=== PATIENT | female | born 1990 ===

== ENCOUNTER 2016-12-31 12:01 | Emergency (ER) | payer MEDICAID ==
[2016-12-31 12:53] VITALS: O2SAT 99; BMI 32.3
[2016-12-31] MEDS ORDERED: Sodium Chloride 0.9% 1,000 ML IV STA (13:08)
--- NOTE | 2016-12-31 13:15 | ED PDOC ---
Arrival/HPI - General Chief Complaint: Female Genitourinary Time Seen by Provider: 12/31/16 12:55 Historian: Patient - History of Present Illness Narrative History of Present Illness (Text): 12/31/16 13:12 26yo female present with complaint of left sided pelvic abdominal pain and vaginal bleeding. she reports that her LMP was Oct 24 2016. States she took a positive home test, but have not seen her OB yet. Reports that she gave 7months ago. States she passed large blood clot and believes it was the tissue. She denies any current vaginal bleeding. States only having pelvic pain. Denies nausea, vomiting, diarrhea, fever, chills, any other complaint. Past Medical History - Provider Review Nursing Documentation Reviewed: Yes - Infectious Disease Hx of Infectious Diseases: None - Reproductive Menopause: No - Pulmonary Hx Asthma: Yes - Psychiatric Hx Depression: No Hx Emotional Abuse: No Hx Physical Abuse: No Hx Substance Use: No - Anesthesia Hx Anesthesia: No Hx Anesthesia Reactions: No Hx Malignant Hyperthermia: No - Suicidal Assessment Feels Threatened In Home Enviroment: No Family/Social History - Physician Review Nursing Documentation Reviewed: Yes Family/Social History: Unknown Family HX Smoking Status: Never Smoked Hx Alcohol Use: No Hx Substance Use: No Allergies/Home Meds Allergies/Adverse Reactions: Allergies No Known Allergies Allergy (Verified 02/04/16 16:25) Home Medications: Home Meds Medication Instructions Recorded Confirmed No Known Home Med 02/04/16 12/31/16 Review of Systems - Physician Review All systems were reviewed & negative as marked: Yes - Review of Systems Constitutional: Normal Eyes: Normal ENT: Normal Respiratory: Normal Cardiovascular: Normal Gastrointestinal: Abdominal Pain. absent: Constipation, Diarrhea, Nausea, Vomiting, Hematochezia, Hematemesis Genitourinary Female: Vaginal Bleeding. absent: Dysuria, Frequency, Hematuria Musculoskeletal: Normal Skin: Normal Neurological: Normal Endocrine: Normal Hemo/Lymphatic: Normal Psychiatric: Normal Physical Exam Vital Signs Reviewed: Yes Vital Signs Temp Pulse Resp BP Pulse Ox 12/31/16 15:12 83 16 99 12/31/16 14:13 99.1 F 78 16 139/50 L 99 12/31/16 12:48 99.3 F 96 H 20 122/80 99 Temperature: Afebrile Blood Pressure: Normal Pulse: Regular Respiratory Rate: Normal Appearance: Positive for: Well-Appearing, Non-Toxic, Comfortable Pain Distress: None Mental Status: Positive for: Alert and Oriented X 3 - Systems Exam Head: Present: Atraumatic, Normocephalic Pupils: Present: PERRL Extroacular Muscles: Present: EOMI Conjunctiva: Present: Normal Mouth: Present: Moist Mucous Membranes Neck: Present: Normal Range of Motion Respiratory/Chest: Present: Clear to Auscultation, Good Air Exchange. No: Respiratory Distress, Accessory Muscle Use Cardiovascular: Present: Regular Rate and Rhythm, Normal S1, S2. No: Murmurs Abdomen: Present: Tenderness (LEft pelvic tenderness), Normal Bowel Sounds, Other (Soft). No: Distention, Peritoneal Signs, Rebound, Guarding, McBurney's Point Tender, Rovsing's Sign Present Back: Present: Normal Inspection Upper Extremity: Present: Normal Inspection. No: Cyanosis, Edema Lower Extremity: Present: Normal Inspection. No: Edema Neurological: Present: GCS=15, CN II-XII Intact, Speech Normal Skin: Present: Warm, Dry, Normal Color. No: Rashes Psychiatric: Present: Alert, Oriented x 3, Normal Insight, Normal Concentration Medical Decision Making ED Course and Treatment: 12/31/16 20:34 PT presented for stated history. she was hemodynamcially stable and comfortable in ED. Lab was unremarkable. Beta was 143,700.00 Transvaginal US - IUP at 10wks 5days with 168bpm. Result was DW the pt. She have OB and was strongly advised to f/u with the OB . Advised TRT ED for any new or worsening symptoms. - Lab Interpretations Lab Results: 12/31/16 13:13 12/31/16 13:13 Lab Results 12/31/16 14:04: Blood Type O POSITIVE, Antibody Screen Negative, BBK History Checked Patient has bt 12/31/16 13:15: Urine Color Yellow, Urine Appearance Sl cloudy, Urine pH 6.0, Ur Specific [place] >= 1.030, Urine Protein Trace H, Urine Glucose (UA) Negative , Urine Ketones Negative, Urine Blood Moderate H, Urine Nitrate Negative, Urine Bilirubin Negative, Urine Urobilinogen 0.2, Ur Leukocyte Esterase Negative, Urine RBC 0 - 2, Urine WBC Negative, Ur Epithelial Cells Many, Urine Bacteria Trace, Urine Other Mucus, Urine HCG, Qual Positive 12/31/16 13:13: Beta HCG, Quant [id number] H 12/31/16 13:13: Sodium 134, Potassium 3.8, Chloride 103, Carbon Dioxide 21, Anion Gap 14, BUN 6 L, Creatinine 0.5, Est GFR ( Amer) > 60, Est GFR (Non -Af Amer) > 60, Random Glucose 105, Calcium 8.9, Total Bilirubin 0.4, AST 23, ALT 29, Alkaline Phosphatase 45, Total Protein 7.3, Albumin 3.8, Globulin 3.5, Albumin/Globulin Ratio 1.1 12/31/16 13:13: PT 11.1, INR 1.03, APTT 24.9 12/31/16 13:13: WBC 9.8, RBC 4.45, Hgb 9.8 L, Hct 31.3 L, MCV 70.3 L, MCH 22.0 L , MCHC 31.3, RDW 16.4 H, Plt Count 288, MPV 10.5, Gran % 72.9 H, Lymph % (Auto) 17.3 L, [place] % (Auto) 8.2 H, Eos % (Auto) 1.3 L, Baso % (Auto) 0.3, Gran # 7.15 H, Lymph # 1.7, [place] # 0.8 H, Eos # 0.1, Baso # 0.03 - RAD Interpretation Radiology Orders: 12/31/16 13:05 OB TRANSVAGINAL [US] Stat - Medication Orders Current Medication Orders: Discontinued Medications Sodium Chloride (Sodium Chloride 0.9%) 1,000 mls @ 999 mls/hr IV .Q1H1M STA Stop: 12/31/16 14:08 Last Admin: 12/31/16 13:24 Dose: 999 mls/hr Disposition/Present on Arrival - Present on Arrival Any Indicators Present on Arrival: No History of DVT/PE: No History of Uncontrolled Diabetes: No Urinary Catheter: No History of Decub. Ulcer: No History Surgical Site Infection Following: None - Disposition Have Diagnosis and Disposition been Completed?: Yes Diagnosis: , Threatened , Abdominal pain, Anemia Disposition: HOME/ ROUTINE Disposition Time: 14:55 Patient Plan: Discharge Condition: STABLE Discharge Instructions (ExitCare): Threatened Miscarriage (ED) Additional Instructions: Follow up with your OB Return to ED for any new or worsening symptoms Referrals: Tita Gomes DO [Primary Care Provider] - Follow up with primary Pascual Quach MD [Staff Provider] - Follow up with primary
[2016-12-31 13:37] LABS: BASO # 0.03 K/mm3 (0.0-2.0); BASO % 0.3 % (0.0-3.0); EOS # 0.1 (0.0-0.7); EOS % 1.3 % (1.5-5.0); GRAN # 7.15 (1.4-6.5); GRAN % 72.9 % (50.0-68.0); HEMOGLOBIN 9.8 gm/dL (12.0-16.0); LYMPH # 1.7 (1.2-3.4); LYMPH % 17.3 % (22.0-35.0); MEAN CELL VOLUME 70.3 fL (80.0-105.0); MEAN CORPUSCULAR HGB CONC 31.3 g/dl (31.0-37.0); MEAN PLATELET VOLUME 10.5 fl (7.0-11.0); MONO # 0.8 (0.1-0.6); MONO % 8.2 % (1.0-6.0); PLATELET COUNT 288 10^3/uL (120.0-450.0); RBC 4.45 10^6/uL (3.5-6.1); RED CELL DISTRIBUTION WIDTH 16.4 % (11.5-14.5); WHITE BLOOD COUNT 9.8 10^3/ul (4.5-11.0)
[2016-12-31 13:37] LABS: URINE BILIRUBIN NEGATIVE (NEGATIVE); URINE BLOOD MODERATE (NEGATIVE); URINE GLUCOSE (UA) NEGATIVE (NEGATIVE); URINE LEUKOCYTE ESTERASE NEGATIVE Leu/uL (NEGATIVE); URINE NITRATE NEGATIVE (NEGATIVE); URINE PROTEIN TRACE mg/dL (<30 mg/dL); URINE UROBILINOGEN 0.2 E.U./dL (<1 E.U./dL)
[2016-12-31 13:38] LABS: URINE APPEARANCE SL CLOUDY (CLEAR); URINE COLOR YELLOW (YELLOW)
[2016-12-31 13:39] LABS: HCG,QUALITATIVE URINE POSITIVE (NEGATIVE)
[2016-12-31 13:46] LABS: ALB/GLOB RATIO 1.1 (1.1-1.8); ALBUMIN 3.8 g/dL (3.0-4.8); ALT/SGPT 29 U/L (7-56); AST/SGOT 23 U/L (15-39); BLOOD UREA NITROGEN 6 mg/dL (7-21); CALCIUM 8.9 mg/dL (8.4-10.5); GFR AFRICAN-AMERICAN > 60; GFR NON-AFRICAN AMERICAN > 60; INR 1.03 (0.93-1.08); PARTIAL THROMBOPLASTIN TIME 24.9 Seconds (23.7-30.8); PROTHROMBIN TIME 11.1 Seconds (9.9-11.8)
[2016-12-31 13:52] LABS: URINE BACTERIA TRACE (NEG); URINE EPITHELIAL CELLS MANY /hpf (0-5); URINE RBC 0 - 2 /hpf (0-2); URINE WBC NEGATIVE /hpf (0-6)
[2016-12-31 14:13] VITALS: BP 139/50; RESP 16; TEMP 99.1
--- NOTE | 2016-12-31 14:17 | US ---
LMP: 10/24/2016 Prior examinations from the current :None TECHNIQUE: Real-time 2D imaging, duplex and color Doppler. FINDINGS: Cardiac activity: Present Rate: 168BPM Measurements: [place] rump length: 3.86cm Gestational age based on CRL 10 weeks 5 days Gestational age based on gestational sac measurement 10 weeks 6 days Gestational age derived from LMP: 9 weeks 5 days TREVER based on LMP:07/31/2017 TREVER based on biometry: 07/23/2017 Gestational concordance documentedyes Yolk sac yesUterus: Unremarkable. No Cervical abnormalities: Negative examination for cervical dilatation or effacement. Subchorionic hemorrhage: None the uterus measures 10.7 x 7.5 x 9.3 cm and is anteverted. Cervical length is 3.4 cm ADNEXA: Right: Ovary 3.4 x 3.4 x 2.0 cm. Normal Doppler arterial waveform documented. Left: Ovary 2.9 x 3.1 x 1.8 cm. Normal Doppler arterial waveform documented Fluid in the cul-de-sac: No IMPRESSION: Single intrauterine gestation with cardiac activity. Estimated gestational age by ultrasound in weeks 6 days +/-0 weeks 5 days
[2016-12-31 15:13] VITALS: PULSE 83
== END 2016-12-31 15:12 | disposition home or self-care (01) ==
LOC: ED 12:01
DX: O20.0 Threatened abortion (principal); O99.011 Anemia complicating pregnancy, first trimester; Z3A.01 Less than 8 weeks gestation of pregnancy; O26.891 Other specified pregnancy related conditions, first trimester; R10.2 Pelvic and perineal pain
CPT/HCPCS: 76817; 80053; 81001; 84702; 84703; 85025; 85610; 85730; 86850; 86900; 99284; J7040

== ENCOUNTER 2018-02-02 13:32 | Emergency (ER) | payer MEDICAID ==
[2018-02-02 13:34] VITALS: BMI 32.3
[2018-02-02 13:50] VITALS: TEMP 99.5; O2SAT 99
[2018-02-02] MEDS ORDERED: TDAP Vaccine 0.5 mL Syr IM ONE (14:00)
--- NOTE | 2018-02-02 14:00 | ED PDOC ---
Arrival/HPI - General Chief Complaint: Abnormal Skin Integrity Time Seen by Provider: 02/02/18 14:00 Historian: Patient - History of Present Illness Narrative History of Present Illness (Text): 02/02/18 14:00 This 27 yo female who denies pmh presents to this ED c/o left forehead laceration x [employer]. Patient stated she accidentally hit her forehead against the corner of bathroom cabinet. Patient denies loc, diplopia, dizziness, weakness, cms, n/v, or abnormal gait. Last tetanus is ukn. Time/Duration: Other (see hpi) Context: Home Past Medical History - Provider Review Nursing Documentation Reviewed: Yes - Infectious Disease Hx of Infectious Diseases: None - Reproductive Menopause: No - Pulmonary Hx Asthma: Yes - Psychiatric Hx Depression: No Hx Emotional Abuse: No Hx Physical Abuse: No Hx Substance Use: No - Anesthesia Hx Anesthesia: No Hx Anesthesia Reactions: No Hx Malignant Hyperthermia: No - Suicidal Assessment Feels Threatened In Home Enviroment: No Family/Social History - Physician Review Nursing Documentation Reviewed: Yes Family/Social History: Other (noncontributory) Smoking Status: Never Smoked Hx Alcohol Use: No Hx Substance Use: No Allergies/Home Meds Allergies/Adverse Reactions: Allergies No Known Allergies Allergy (Verified 02/04/16 16:25) Review of Systems - Review of Systems Constitutional: Normal. absent: Fatigue, Weight Change, Fevers, Night Sweats Eyes: Normal ENT: Normal Respiratory: Normal Cardiovascular: Normal Gastrointestinal: Normal Genitourinary Female: Normal Musculoskeletal: Normal Skin: Laceration (forehead) Neurological: Normal Endocrine: Normal Hemo/Lymphatic: Normal Psychiatric: Normal Physical Exam Vital Signs Temp Pulse Resp BP Pulse Ox 02/02/18 13:46 99.5 F 86 16 130/88 99 Temperature: Afebrile Blood Pressure: Normal Pulse: Regular Respiratory Rate: Normal Appearance: Positive for: Well-Appearing, Non-Toxic, Comfortable Pain Distress: None Mental Status: Positive for: Alert and Oriented X 3 - Systems Exam Head: Present: Normocephalic, Laceration (2.7 cm left forehead laceration), Other (no racoon sign. no cortes sign) Pupils: Present: PERRL Extroacular Muscles: Present: EOMI. No: Entrapment Conjunctiva: Present: Normal Ears: Present: Normal, NORMAL TM, Normal Canal, Other (no hemotymapnum). No: Erythema, TM Bulging, Fluid, TM Perf Mouth: Present: Moist Mucous Membranes, Normal Lips, Normal Tounge. No: Drooling Pharnyx: Present: Normal. No: ERYTHEMA, EXUDATE, TONSILS ENLARGED Neck: Present: Normal Range of Motion. No: Meningeal Signs, MIDLINE TENDERNESS , Paraspinal Tenderness Upper Extremity: Present: Normal Inspection, Normal ROM Lower Extremity: Present: Normal Inspection, Normal ROM Neurological: Present: GCS=15, CN II-XII Intact, Speech Normal, Motor Func Grossly Intact, Normal Sensory Function, Normal Cerebellar Funct Skin: Present: Warm, Dry, Normal Color. No: Rashes Psychiatric: Present: Alert, Oriented x 3, Normal Insight, Normal Concentration Medical Decision Making ED Course and Treatment: 02/02/18 14:45 Re-evaluation. Patient feels better. Discussed results and plan with patient who expresses understanding. All questions answered and there is agreement with the plan to discharge home with instructions. Patient stable for discharge. Return if symptoms persist or worsen. Patient was recommended to f/u pmd in 2 days for wound check. To return to emergency if patient devleops [place], dizziness or new symptoms. Patient understood recommendation. Re-evaluation Time: 14:45 Reassessment Condition: Re-examined, Improved - RAD Interpretation Narrative RAD Interpretations (Text): 02/02/18 14:47 PROCEDURE: LACERATION REPAIR Performed by the emergency provider Location: left forehead Length: 2.7 cm Description: clean wound edges , no foreign bodies Distal CMS: Normal. No deficits. Neurovascularly intact. Anesthesia: Lidocaine 1% with Epi. Preparation: The wound was cleaned with NS and [place]. The area was prepped and draped in the usual sterile fashion. Exploration: The wound was explored and no foreign bodies were found. Procedure: The wound was closed with Vicryl, 6-0, interrupted, single layer. There was good approximation. In total, 2 sutures were used. Post-Procedure: Good closure and hemostasis. The patient tolerated the procedure well and there were no complications. CSM remains intact. Post procedure dressing applied. - Medication Orders Current Medication Orders: Discontinued Medications Tetanus/Reduced Diphtheria/Acell Pertussis (Boostrix Vaccine Inj) 0.5 ml IM .ONCE ONE Stop: 02/02/18 14:01 Last Admin: 02/02/18 14:11 Dose: 0.5 ml Immunization Registry Document 02/02/18 14:11 SF (Rec: 02/02/18 14:11 [email or web address]) Immunization Registry Consent Date 02/02/18 Disposition/Present on Arrival - Present on Arrival Any Indicators Present on Arrival: No History of DVT/PE: No History of Uncontrolled Diabetes: No Urinary Catheter: No History of Decub. Ulcer: No History Surgical Site Infection Following: None - Disposition Have Diagnosis and Disposition been Completed?: Yes Diagnosis: Facial laceration Disposition: HOME/ ROUTINE Disposition Time: 14:54 Patient Plan: Discharge Condition: GOOD Discharge Instructions (ExitCare): Laceration Infection (DC) Additional Instructions: Call private doctor for follow up visit in 1-2 days. Keep wound clean and dry for 2 days, then clean wound daily with soap and water. Take medication as instructed. return to emergency if wound gets infected. Stitches are absorbable, so they would fall off by themselves. Prescriptions: Cephalexin [cephalexin] 500 mg PO QID #20 cap Referrals: Tita Gomes DO [Primary Care Provider] - Follow up with primary Forms: [employer] ([place])
[2018-02-02 15:34] VITALS: BP 133/73; PULSE 81; RESP 18
== END 2018-02-02 15:31 | disposition home or self-care (01) ==
LOC: ED 13:32
DX: S01.81XA Laceration without foreign body of other part of head, initial encounter (principal); W22.03XA Walked into furniture, initial encounter; Y92.002 Bathroom of unspecified non-institutional (private) residence as the place of occurrence of the external cause; Z23 Encounter for immunization